=== PATIENT | male | born 1965 | race Caucasian/White ===

== ENCOUNTER 2017-05-27 13:27 | Emergency (ER) | payer OTHER ==
[~2017-05-27] VITALS: Ht 172.7 cm; Wt 65.0 kg
[~2017-05-27 13:27] MED LIST: ATRITAB PO; HYDR-3533 PO; LEVE500 PO; LEVO.05 PO; NAPR500 PO
[2017-05-27 13:31] VITALS: BP 146/78; PULSE 94; RESP 16; TEMP 97.9; O2SAT 98
[2017-05-27] MEDS ORDERED: LEVE500 PO (15:23)
[2017-05-27] MEDS ORDERED: ATRITAB PO (15:23)
--- NOTE | 2017-05-27 15:23 | PD ---
HPI Chief Complaint: Medication Refill Request Time Seen by Provider: 15:05 Travel History International Travel<30 days: No Contact w/Intl Traveler<30days: No Traveled to known affect area: No History of Present Illness HPI 51-year-old male requesting medication refill. Patient has history of HIV infection and seizure. Patient ran out of Keppra and Atripla. Patient otherwise denied any medical complaints today. PFSH Past Medical History Asthma: Yes Diminished Hearing: No GERD: Yes Hepatitis: Yes (C) Immune Disorder: Yes (HIV POSITIVE) Integumentary: Yes (CUTANEOUS PERFORIA) Seizures: Yes Influenza Vaccination: No Past Surgical History Appendectomy: Yes Tonsillectomy: Yes Social History Alcohol Use: No Tobacco Use: Yes (1/2 PACK) Substance Use: No Allergies-Medications (Allergen,Severity, Reaction): Coded Allergies: Sulfa (Sulfonamide Antibiotics) (Unverified Allergy, Severe, Hives, ) sulfamethoxazole (Unverified Allergy, Severe, 05/27/17) trimethoprim (Unverified Allergy, Severe, 05/27/17) Reported Meds & Prescriptions Reported Meds & Active Scripts Active Keppra (Levetiracetam) 500 Mg Tab 1,000 Mg PO BID Atripla (Naxgxmiup-Zvvnpmymmeiqk-Fwsyqodbo) 600-200-300 Mg Tab 1 Tab PO HS Take on an empty stomach. Naprosyn (Naproxen) 500 Mg Tab 500 Mg PO BID Lortab (Hydrocodone-Acetaminophen) 5-325 Mg Tab 1 Tab PO Q6H PRN Reported Synthroid (Levothyroxine Sodium) 50 Mcg Tab 50 Mcg PO DAILY Keppra (Levetiracetam) 500 Mg Tab 500 Mg PO BID Atripla (Rlprdfjdg-Iimhnzlzpjuam-Xaazvkyan) 600-200-300 Mg Tab 1 Tab PO HS Take on an empty stomach. Review of Systems General / Constitutional: No: Fever Eyes: No: Visual changes HENT: No: Headaches Cardiovascular: No: Chest Pain or Discomfort Respiratory: No: Shortness of Breath Gastrointestinal: No: Abdominal Pain Genitourinary: No: Dysuria Musculoskeletal: No: Pain Skin: No Rash Neurologic: No: Weakness Psychiatric: No: Depression Endocrine: No: Polydipsia Hematologic/Lymphatic: No: Easy Bruising Physical Exam Narrative GENERAL: Well-nourished, well-developed patient. SKIN: Focused skin assessment warm/dry. HEAD: Normocephalic. EYES: No scleral icterus. No injection or drainage. NECK: Supple, trachea midline. No JVD or lymphadenopathy. CARDIOVASCULAR: Regular rate and rhythm without murmurs, gallops, or rubs. RESPIRATORY: Breath sounds equal bilaterally. No accessory muscle use. GASTROINTESTINAL: Abdomen soft, non-tender, nondistended. MUSCULOSKELETAL: No cyanosis, or edema. BACK: Nontender without obvious deformity. No CVA tenderness. Data Data Last Documented VS Orders Orders Ed Discharge Order (05/27/17 15:23) [facility] Medical Decision Making Medical Screen Exam Complete: Yes Emergency Medical Condition: Yes Differential Diagnosis Differential diagnosis including refill medications. Narrative Course 51-year-old male with history of seizure on HIV infection requesting refill of medication. Diagnosis Primary Impression: History of seizure Additional Impression: History of HIV infection Patient Instructions: General Instructions Additional Instructions: Patient was given prescription for 1 week supply of the medication. Advised patient to follow local physician. Med/Other Pt SpecificInfo: Prescription(s) given Scripts Levetiracetam (Keppra) 500 Mg Tab 1000 MG PO BID for Control Seizures, #28 TAB 0 Refills Prov: Alirio Paredes MD 05/27/17 Onsuodsjx-Xbaxqeqjeoclx-Aylbozvjl (Atripla) 600-200-300 Mg Tab 1 TAB PO HS for Mgmt Viral Infection, #7 TAB 0 Refills Take on an empty stomach. Prov: Alirio Paredes MD 05/27/17 Disposition: 01 DISCHARGE HOME Condition: Stable Alirio Paredes MD May 27, 2017 15:23
== END 2017-05-27 16:18 | disposition home or self-care (01) ==
LOC: NEPD 13:27
DX: B20 Human immunodeficiency virus [HIV] disease (principal); G40.909 Epilepsy, unspecified, not intractable, without status epilepticus; F17.200 Nicotine dependence, unspecified, uncomplicated; Z76.0 Encounter for issue of repeat prescription
CPT/HCPCS: 99284

== ENCOUNTER → 2017-06-10 | Outpatient (CLI) | payer OTHER ==
--- NOTE | 2017-06-10 11:25 | RADRPT ---
EXAM DATE/TIME: 06/10/2017 09:35 [facility] COMPARISON: No previous studies available for comparison. INDICATIONS : Chronic viral hepatitis. MEDICAL HISTORY : Gastroesophageal reflux disease. Hepatitis C. HIV. Seizures. Ashtma. Cutaneous perforia. Tobacco use. SURGICAL HISTORY : Tonsillectomy. Appendectomy. Left hand little finger removed. ENCOUNTER: Initial ACUITY: > 1 year PAIN SCORE: 2/10 LOCATION: Bilateral upper quadrant MEASUREMENTS: LIVER: 14.9 cm length COMMON DUCT: 4 mm RIGHT KIDNEY: 10.4 x 5.2 x 4.2 cm SPLEEN: 10.1 cm length FINDINGS: LIVER: Normal echotexture without focal lesion or ductal dilatation. COMMON DUCT: No intraluminal mass or stone visualized. GALLBLADDER: There is a single stone within the gallbladder without wall thickening or pericholecystic fluid measu ring 8 mm. PANCREAS: The visualized portions are within normal limits. RIGHT KIDNEY: There are multiple stones within the right kidney without hydronephrosis the largest measuring 6 mm. SPLEEN: No focal lesion. CONCLUSION: 1. Cholelithiasis 2. Nonobstructing right renal stones Mckinley Sheikh MD on June 10, 2017 at 11:21 Board Certified Radiologist. This report was verified electronically.
== END ==
LOC: HRAD 08:41
DX: B18.2 Chronic viral hepatitis C (principal)
CPT/HCPCS: 76705